=== PATIENT | female | born 1995 | race Caucasian/White ===

== ENCOUNTER 2018-03-26 16:00 | Outpatient (CLI) | payer OTHER ==
--- NOTE | 2018-03-26 16:59 | ULT ---
RIGHT BREAST ULTRASOUND: Date: 03/26/18 HISTORY: Palpable right breast mass at 10 o'clock position of right breast. FINDINGS: Real-time imaging of the area of concern shows a circumscribed, but somewhat macrolobulated 2.1 x 3.4 cm solid-appearing mass. 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 IMPRESSION: BIRADS Category 4 - suspicious abnormality. Biopsy is recommended. In this case, an ultrasound-guided procedure. Alternatively, a 6 month follow-up ultrasound to assess for stability could be performed. The options were discussed with the patient, who will discuss with her referring physician. POS: OFF
== END 2018-03-26 16:01 | disposition home or self-care (01) ==
LOC: BICULT 16:00
PROVIDERS: ATTEND Nurse Practitioner
DX: N63.0 Unspecified lump in unspecified breast (principal)